=== PATIENT | female | born 1995 | race American Indian/Alaskan Native ===

== ENCOUNTER 2017-09-11 18:56 | Emergency (ER) | payer MEDICAID ==
[2017-09-11 19:26] VITALS: BP 120/73
[2017-09-11 20:06] LABS: Basophils % (Auto) 0.4 % (0.0-1.8); Eosinophils # (Auto) 0.2 K/mm3 (0.0-0.4); Eosinophils % (Auto) 2.7 % (0.0-4.3); Hematocrit 39.2 % (30.3-42.9); Hemoglobin 12.6 gm/dl (10.1-14.3); Lymphocytes # (Auto) 2.1 K/mm3 (1.2-5.4); Lymphocytes % (Auto) 26.8 % (13.4-35.0); Mean Corpuscular HGB Conc 32 % (30-34); Mean Corpuscular Hemoglobin 26 pg (28-32); Mean Corpuscular Volume 81 fl (79-97); Monocytes # (Auto) 0.8 K/mm3 (0.0-0.8); Monocytes % (Auto) 10.6 % (0.0-7.3); Platelet Count 267 K/mm3 (140-440); Red Blood Count 4.83 M/mm3 (3.65-5.03); Red Cell Distribution Width 17.2 % (13.2-15.2)
[2017-09-11 20:17] LABS: BUN/Creatinine Ratio 12; Blood Urea Nitrogen 7 mg/dL (7-17); Calcium 9.3 mg/dL (8.4-10.2); Hemolysis Index 16
[2017-09-11 21:15] LABS: Bacteria,Urine 1+ /HPF (Negative); Bilirubin,Urine NEG (Negative); Blood,Urine NEG (Negative); Color,Urine Yellow (Yellow); Mucus,Urine 1+ /HPF; Protein,Urine <15 mg/dL mg/dL (Negative)
--- NOTE | 2017-09-11 21:54 | Ultrasound Report ---
FINAL REPORT EXAM: US OB TRANSVAGINAL HISTORY: Pelvic cramping COMPARISON: None available. TECHNIQUE: Several real-time grayscale and color Doppler images were obtained. Transabdominal and transvaginal exam. FINDINGS: Uterus measures 9.5 x 7.0 x 8.4 centimeters. Single live IUP. Estimated gestational age 9 weeks 4 days. Estimated delivery date April 12, 2018. heart rate 168 beats per minute. Yolk sac is present. No adnexal masses are demonstrated. Right ovary measures 2.9 x 1.7 x 1.9 centimeters. The left ovary measures 2.4 x 1.8 x 2.3 centimeters. Within the left ovary, there is a cystic structure measuring 1.1 centimeters which may reflect corpus luteum. IMPRESSION: Single live IUP. Estimated gestational age 9 weeks 4 days. Estimated delivery date April 12, 2018. 1.1 centimeter left ovarian cystic structure which may reflect corpus luteum. No adnexal masses.
--- NOTE | 2017-09-11 21:55 | Ultrasound Report ---
FINAL REPORT EXAM: US OB < = 14 WEEKS FETUS HISTORY: Pelvic cramping COMPARISON: None available. TECHNIQUE: Several real-time grayscale and color Doppler images were obtained. Transabdominal and transvaginal exam. FINDINGS: Uterus measures 9.5 x 7.0 x 8.4 centimeters. Single live IUP. Estimated gestational age 9 weeks 4 days. Estimated delivery date April 12, 2018. heart rate 168 beats per minute. Yolk sac is present. No adnexal masses are demonstrated. Right ovary measures 2.9 x 1.7 x 1.9 centimeters. The left ovary measures 2.4 x 1.8 x 2.3 centimeters. Within the left ovary, there is a cystic structure measuring 1.1 centimeters which may reflect corpus luteum. IMPRESSION: Single live IUP. Estimated gestational age 9 weeks 4 days. Estimated delivery date April 12, 2018. 1.1 centimeter left ovarian cystic structure which may reflect corpus luteum. No adnexal masses.
== END 2017-09-11 23:06 | disposition left against medical advice (07) ==
LOC: ED 18:56
DX: O26.891 Other specified pregnancy related conditions, first trimester (principal); R07.89 Other chest pain; R10.2 Pelvic and perineal pain; Z3A.09 9 weeks gestation of pregnancy; Z53.21 Procedure and treatment not carried out due to patient leaving prior to being seen by health care provider
CPT/HCPCS: 36415; 76801; 76817; 80048; 81001; 84484; 84702; 85025; 93005; 93010

== ENCOUNTER 2017-10-11 20:39 | Emergency (ER) | payer MEDICAID ==
[2017-10-11 21:41] LABS: Basophils % (Auto) 0.3 % (0.0-1.8); Eosinophils # (Auto) 0.2 K/mm3 (0.0-0.4); Eosinophils % (Auto) 3.2 % (0.0-4.3); Hematocrit 37.1 % (30.3-42.9); Hemoglobin 12.4 gm/dl (10.1-14.3); Lymphocytes # (Auto) 1.5 K/mm3 (1.2-5.4); Lymphocytes % (Auto) 20.6 % (13.4-35.0); Mean Corpuscular HGB Conc 33 % (30-34); Mean Corpuscular Hemoglobin 27 pg (28-32); Mean Corpuscular Volume 81 fl (79-97); Monocytes # (Auto) 0.5 K/mm3 (0.0-0.8); Monocytes % (Auto) 7.3 % (0.0-7.3); Platelet Count 223 K/mm3 (140-440); Red Blood Count 4.58 M/mm3 (3.65-5.03); Red Cell Distribution Width 16.9 % (13.2-15.2)
[2017-10-11 21:47] LABS: BUN/Creatinine Ratio 10; Blood Urea Nitrogen 5 mg/dL (7-17); Calcium 9.3 mg/dL (8.4-10.2); Hemolysis Index 44
[2017-10-11 22:17] LABS: HCG Qualitative,Urine Positive (Negative)
[2017-10-11 22:25] LABS: Bacteria,Urine 1+ /HPF (Negative); Bilirubin,Urine NEG (Negative); Blood,Urine NEG (Negative); Calcium Oxalate Crystals,Urine 1+; Color,Urine Yellow (Yellow); Mucus,Urine 1+ /HPF
[2017-10-11] MEDS ORDERED: NACL 0.9% 1000 ML 1,000 ML ONE (23:14)
--- NOTE | 2017-10-11 23:17 | Emergency Department Report ---
ED Female HPI - General Chief complaint: Abdominal Pain Stated complaint: ABD PAIN/VAG BLEEDING; 13WKS GEST Time Seen by Provider: 10/11/17 22:02 Source: patient Mode of arrival: Ambulatory Limitations: No Limitations - History of Present Illness Initial comments: Ms. Dunn is pleasant 22 yo female who presents with abdominal pain, pelvic cramping and vomiting. She is 13 weeks 6 days . She has not had vomiting during this . However she has more vomiting today. She has vaginal spotting. Estimated due date 04/09/2018. Pain is 7 out of 10. MD Complaint: vaginal bleeding -: Gradual, days(s) (1) Severity: mild Severity scale (0 -10): 7 Quality: cramping - Related Data Previous Rx's Medication Instructions Recorded Last Taken Type Promethazine [Phenergan TAB] 25 mg PO Q6HR PRN #20 tab 10/12/17 Unknown Rx Allergies Allergy/AdvReac Type Severity Reaction Status Date / Time No Known Allergies Allergy Verified 10/11/17 23:29 ED Review of Systems ROS: Stated complaint: ABD PAIN/VAG BLEEDING; 13WKS GEST Other details as noted in HPI Comment: All other systems reviewed and negative Constitutional: denies: fever, malaise Respiratory: denies: cough Cardiovascular: denies: chest pain ED Past Medical Hx - Social History Smoking Status: Never Smoker Substance Use Type: None - Medications Home Medications: Home Medications Medication Instructions Recorded Confirmed Last Taken Type Promethazine [Phenergan TAB] 25 mg PO Q6HR PRN #20 tab 10/12/17 Unknown Rx ED Physical Exam - General Limitations: No Limitations General appearance: alert, in no apparent distress - Head Head exam: Present: atraumatic, normocephalic - Eye Eye exam: Present: normal appearance - ENT ENT exam: Present: mucous membranes moist - Neck Neck exam: Present: normal inspection. Absent: tenderness, meningismus - Respiratory Respiratory exam: Present: normal lung sounds bilaterally. Absent: respiratory distress, wheezes, rales, rhonchi - Cardiovascular Cardiovascular Exam: Present: regular rate, normal rhythm, normal heart sounds. Absent: bradycardia, tachycardia, systolic murmur, diastolic murmur, rubs, gallop - GI/Abdominal GI/Abdominal exam: Present: soft, normal bowel sounds. Absent: distended, tenderness, guarding, rebound - Extremities Exam Extremities exam: Present: normal inspection - Back Exam Back exam: Present: normal inspection - Neurological Exam Neurological exam: Present: alert, oriented X3 - Psychiatric Psychiatric exam: Present: normal affect, normal mood - Skin Skin exam: Present: warm, dry, intact, normal color. Absent: rash ED Course Vital Signs 10/11/17 10/11/17 10/11/17 21:02 22:00 22:08 Temperature 98.0 F 99.0 F Pulse Rate 82 87 Respiratory 18 16 Rate Blood Pressure 111/61 Blood Pressure 116/73 [Left] O2 Sat by Pulse 100 100 100 Oximetry 10/11/17 10/12/17 10/12/17 23:13 00:19 00:31 Temperature Pulse Rate Respiratory Rate Blood Pressure 105/66 105/66 105/66 Blood Pressure [Left] O2 Sat by Pulse 100 100 100 Oximetry 10/12/17 10/12/17 10/12/17 01:00 01:09 01:30 Temperature Pulse Rate Respiratory Rate Blood Pressure 122/70 122/70 120/67 Blood Pressure [Left] O2 Sat by Pulse 100 100 99 Oximetry 10/12/17 10/12/17 02:00 02:30 Temperature Pulse Rate Respiratory Rate Blood Pressure 120/67 113/64 Blood Pressure [Left] O2 Sat by Pulse 100 99 Oximetry ED Medical Decision Making - Lab Data Result diagrams: 10/11/17 21:14 10/11/17 21:14 Laboratory Results - last 24 hr 10/11/17 10/11/17 10/11/17 21:14 21:14 21:55 WBC 7.4 RBC 4.58 Hgb 12.4 Hct 37.1 MCV 81 MCH 27 L MCHC 33 RDW 16.9 H Plt Count 223 Lymph % (Auto) 20.6 Evangeline % (Auto) 7.3 Eos % (Auto) 3.2 Baso % (Auto) 0.3 Lymph # 1.5 Evangeline # 0.5 Eos # 0.2 Baso # 0.0 Seg Neutrophils % 68.6 Seg Neutrophils # 5.0 Sodium 134 L Potassium 4.2 Chloride 99.8 Carbon Dioxide 20 L Anion Gap 18 BUN 5 L Creatinine 0.5 L Estimated GFR > 60 BUN/Creatinine Ratio 10 Glucose 90 Calcium 9.3 Urine Color Yellow Urine Turbidity Clear Urine pH 5.0 Ur Specific Ramer 1.025 Urine Protein 30 mg/dl Urine Glucose (UA) Neg Urine Ketones Neg Urine Blood Neg Urine Nitrite Neg Ur Reducing Substances Not Reportable Urine Bilirubin Neg Urine Ictotest Not Reportable Urine Urobilinogen 2.0 Ur Leukocyte Esterase Sm Urine WBC (Auto) 3.0 Urine RBC (Auto) 2.0 U Epithel Cells (Auto) 12.0 Urine Bacteria (Auto) 1+ Calcium Oxalate Crystal 1+ Urine Mucus 1+ Urine HCG, Qual Positive A - Medical Decision Making Ms. Dunn presents with threatened miscarriage and hyperemesis gravidarum. IVF provided in ED with IV antiemetic. Viable IUP seen on ultrasound. RX: promethazine. Rh+ Critical care attestation.: If time is entered above; I have spent that time in minutes in the direct care of this critically ill patient, excluding procedure time. ED Disposition Clinical Impression: Threatened miscarriage, Hyperemesis gravidarum Disposition: TO HOME OR SELFCARE Is pt being admited?: No Condition: Stable Instructions: Threatened Miscarriage (ED), Hyperemesis Gravidarum (ED) Prescriptions: Promethazine [Phenergan TAB] 25 mg PO Q6HR PRN #20 tab PRN Reason: Nausea Referrals: PRIMARY CARE, [Primary Care Provider] - 3-5 Days Time of Disposition: 02:49
[2017-10-11] MEDS ORDERED: ZOFRAN IV ONE (23:38)
[2017-10-11] MEDS ORDERED: NACL 0.9% 1000 ML 1,000 ML IV ONE (23:38)
--- NOTE | 2017-10-12 01:12 | Ultrasound Report ---
FINAL REPORT EXAM: US OB < = 14 WEEKS FETUS HISTORY: vaginal spotting 13 weeks COMPARISON: September 11, 2017. TECHNIQUE: Several real-time grayscale and color Doppler images were obtained. Transabdominal and transvaginal exam. FINDINGS: Single live IUP. Estimated gestational age 14 weeks 3 days. Estimated delivery date April 08, 2018. On prior exam, estimated delivery date April 12, 2018. heart rate 161 beats per minute. Uterus measures 12.6 x 8.9 x 10.6 centimeters. Limited evaluation of structures due to early gestational age. No adnexal masses are demonstrated. Right ovary measures 4.3 x 1.5 x 1.5 centimeters. Left ovary measures 3.6 x 2.0 x 2.2 centimeters. 1.6 centimeter hypoechoic left ovarian structure which may reflect corpus luteum. On prior exam there is a 1.1 centimeter left ovarian cystic structure. Placenta location anterior. Placenta slightly low lying. Placenta approximately 5 millimeters from the cervical os. The cervix is closed. Technologist notes slight heterogeneity uterus underlying the placenta. No retroplacental clot demonstrated. There is vascular flow to the placenta. IMPRESSION: Single live IUP. Estimated gestational age 14 weeks 3 days. Estimated delivery date April 08, 2018. On prior exam, estimated delivery date April 12, 2018. No placenta previa. The placenta is low lying approximately 5 millimeters from the cervical os. 1.6 centimeter hypoechoic left ovarian hypoechoic structure which could reflect corpus luteum. No adnexal masses are demonstrated. Technologist notes slight heterogeneity of the uterus underlying the placenta. No placental fluid collection demonstrated. No evidence of abruption. Followup exam suggested to assess stability.
[2017-10-12 02:40] VITALS: BP 113/64
== END 2017-10-12 03:00 | disposition home or self-care (01) ==
LOC: ED 20:39
DX: O03.9 Complete or unspecified spontaneous abortion without complication (principal); O21.0 Mild hyperemesis gravidarum; Z3A.13 13 weeks gestation of pregnancy
CPT/HCPCS: 36415; 76801; 76817; 80048; 81001; 81025; 85025; 86900; 86901; 96361; 96374; 99284; J2405; J7030

== ENCOUNTER 2018-03-30 21:19 | Inpatient (IN) | payer OTHER, MEDICAID ==
[2018-03-31] MEDS ORDERED: BRETHINE IVP PRN ×2 (00:21→09:30)
[2018-03-31] MEDS ORDERED: STADOL IV PRN (00:21)
[2018-03-31] MEDS ORDERED: BRETHINE SUB-Q PRN ×2 (00:21→09:30)
[2018-03-31] MEDS ORDERED: MINERAL OIL PO PRN ×2 (00:21→09:30)
[2018-03-31] MEDS ORDERED: XYLOCAINE 2% INFILTRATI ONE (00:21)
[2018-03-31] MEDS ORDERED: SUBLIMAZE IV PRN (00:21)
[2018-03-31 00:55] LABS: Hematocrit 30.6 % (30.3-42.9); Mean Corpuscular HGB Conc 33 % (30-34); Mean Corpuscular Volume 79 fl (79-97); Platelet Count 233 K/mm3 (140-440)
[2018-03-31] MEDS ORDERED: PITOCin/NS 20 UNIT/1000ML DRIP 20 UNITS/1,000 ML BAG IV SCH (01:00)
[2018-03-31 01:16] LABS: Mean Corpuscular Hemoglobin 26 pg (28-32)
[2018-03-31] MEDS: LACTATED RINGERS 1,000 ML IV SCH ×4 (04:23→17:41)
[2018-03-31] MEDS ORDERED: PITOCin/NS 30 UNIT/500ML 30,000 MILLIUNITS/500 ML BAG IV ONE (08:55)
--- NOTE | 2018-03-31 09:00 | History and Physical Report ---
History of Present Illness Date of examination: 03/31/18 Date of admission: 03/31/18 00:27 Chief complaint: contractions History of present illness: 22y/o @ 38+2 weeks presents with regular uterine contractions and advanced cervical dilation of 5cm. She denies leakage of fluid. The patient initiated her care @ 12 weeks ega with [facility]. Her is complicated by obesity. The patient is GBS negative. Past History Past Medical History: no pertinent history Past Surgical History: no surgical history Social history: single - Obstetrical History Expected Date of Delivery: 04/12/18 Actual Gestation: 38 Week(s) 2 Day(s) : 1 Para: 0 Hx # Term Pregnancies: 0 Spontaneous Abortions: 0 Induced : 0 Number of Living Children: 0 Medications and Allergies Allergies Allergy/AdvReac Type Severity Reaction Status Date / Time No Known Allergies Allergy Verified 10/11/17 23:29 Home Medications Medication Instructions Recorded Confirmed Last Taken Type Vit,Calc76/Iron/Folic 1 each PO DAILY 03/30/18 03/30/18 03/30/18 History [Pnv 29-1 Tablet] Active Meds: Active Medications Butorphanol Tartrate (Stadol) 2 mg IV Q2H PRN PRN Reason: Pain , Severe (7-10) Ephedrine Sulfate (Ephedrine Sulfate) 10 mg IV Q2M PRN PRN Reason: Hypotension Fentanyl (Sublimaze) 100 mcg IV Q2H PRN PRN Reason: Labor Pain Lactated Ringer's (Lactated Ringers) 1,000 mls @ 125 mls/hr IV DIRECT ALIYA Last Admin: 03/31/18 04:23 Dose: 125 mls/hr Documented by: Oxytocin/Sodium Chloride (Pitocin/Ns 20 Unit/1000ml Drip) 20 units in 1,000 mls @ 125 mls/hr IV DIRECT ALIYA Mineral Oil (Mineral Oil) 30 ml PO QHS PRN PRN Reason: Constipation Terbutaline Sulfate (Brethine) 0.25 mg SUB-Q ONCE PRN PRN Reason: Hyperstimulation/Hypertonicity Terbutaline Sulfate (Brethine) 0.25 mg IVP ONCE PRN PRN Reason: Hyperstimulation/Hypertonicity Review of Systems All systems: negative Genitourinary: contractions, no leakage of fluid - Vital Signs Vital signs: Vital Signs Pulse BP 86 133/76 03/30/18 21:51 03/30/18 21:51 Temp Pulse Resp BP Pulse Ox 98.3 F 86 16 130/74 98 03/31/18 07:58 03/31/18 08:09 03/31/18 07:58 03/31/18 08:09 03/31/18 04:52 - Physical Exam Breasts: Positive: deferred Cardiovascular: Regular rate Lungs: Positive: Clear to auscultation Results Result Diagrams: 03/31/18 00:39 Abnormal lab results 03/31/18 Range/Units 00:39 Hgb 10.0 L (10.1-14.3) gm/dl MCH 26 L (28-32) pg RDW 17.0 H (13.2-15.2) % All other labs normal. Assessment and Plan - Patient Problems (1) Active labor at term Current Visit: Yes Status: Acute Plan to address problem: admit to L&D (2) Active labor at term Current Visit: Yes Status: Acute
[2018-03-31] MEDS ORDERED: XYLOCAINE 2% INFILTRATI NR (09:30)
[2018-03-31] MEDS ORDERED: PITOCin/NS 30 UNIT/500ML 30 UNITS/500 ML BAG IV SCH (10:00)
[2018-03-31] MEDS ORDERED: LACTATED RINGERS 1,000 ML IV SCH (10:00)
--- NOTE | 2018-03-31 15:46 | Event Note ---
Date: 03/31/18 Patient lying in bed reports feeling contractions sve /-2 AROM clear will continue pit augmentation will offer epidural expect vaginal delivery
--- NOTE | 2018-03-31 17:37 | Anesthesia Consultation ---
Anesthesia Consult and Med Hx Date of service: 03/31/18 - Airway Anesthetic Teeth Evaluation: Good ROM Head & Neck: Adequate Mental/Hyoid Distance: Adequate Mallampati Class: Class III Intubation Access Assessment: Possibly Difficult - Pre-Operative Health Status ASA Pre-Surgery Classification: ASA3 Proposed Anesthetic Plan: Epidural, Spinal - Pulmonary Hx Asthma: No COPD: No Hx Pneumonia: No - Cardiovascular System Hx Hypertension: No - Central Nervous System Hx Seizures: No Hx Psychiatric Problems: No - Endocrine Hx Renal Disease: No Hx End Stage Renal Disease: No Hx Hypothyroidism: No Hx Hyperthyroidism: No - Hematic Hx Anemia: No Hx Sickle Cell Disease: No - Other Systems Hx Alcohol Use: No Hx Obesity: Yes
[2018-03-31] MEDS ORDERED: NARCAN 2 MG/2 ML IV PRN (17:38)
[2018-03-31] MEDS ORDERED: fentaNYL-BUPIV 2 MCG/ML-0.125% 200 MCG/100 ML BAG EPIDURAL SCH (18:00)
[2018-03-31] MEDS: PITOCin/NS 20 UNIT/1000ML DRIP 20 UNITS/1,000 ML BAG IV SCH ×2 (19:00→21:43)
[2018-03-31] MEDS ORDERED: BENADRYL PO PRN (20:06)
[2018-03-31] MEDS ORDERED: TYLENOL PO PRN (20:06)
[2018-03-31] MEDS ORDERED: TUCKS PAD TP PRN (20:06)
[2018-03-31] MEDS ORDERED: PHENERGAN PR PRN (20:06)
[2018-03-31] MEDS ORDERED: NORCO 5/325 PO PRN (20:06)
[2018-03-31] MEDS ORDERED: ZOFRAN IV PRN (20:06)
[2018-03-31] MEDS ORDERED: LANSINOH TP PRN (20:06)
[2018-03-31] MEDS ORDERED: MILK OF MAGNESIA PO PRN (20:06)
[2018-03-31] MEDS ORDERED: PHENERGAN PO PRN (20:06)
[2018-03-31] MEDS ORDERED: DULCOLAX PR PRN (20:06)
--- NOTE | 2018-03-31 20:06 | Procedure Note ---
OB Delivery Note - Delivery Date of Delivery: 03/31/18 Surgeon: ALEXI COLON Estimated blood loss: 300cc - Vaginal Delivery presentation: vertex Delivery position: OA Intrapartum events: none Delivery augmentation: pitocin Delivery monitor: external FHT Route of delivery: Delivery placenta: spontaneous Delivery cord: 3 umbilical vessels Episiotomy: none Delivery laceration: 2nd degree Delivery repair: vicryl Anesthesia: epidural Delivery comments: Patient progressed to C/C/+2 and pushed to deliver a liveborn male with apgars of 8/9. After delivery of the head, the anterior shoulder was delivered with assistance of Lorna and strong maternal effort. The infant was then bulb suctioned. The cord was clamped and cut and infant placed on the patient's abdomen. The placenta delivered spontaneously intact with a 3VC. The patient sustained a midline 2nd degree laceration repaired in normal fashion with 2-0 vicryl. EBL 300ml. weight of 8lbs 13oz. - Infant A at 1 minute: 8 at 5 minutes: 9 Infant Gender: Male (weight 8lbs 13oz)
--- NOTE | 2018-03-31 20:38 | Anesthesia Day of Surgery ---
Anesthesia Day of Surgery - Day of Surgery Patient Examined: Yes Patient H&P Reviewed: Yes Patient is NPO: Yes Beta Blockers: No Cardiac Clearance: No Pulmonary Clearance: No
[2018-03-31] MEDS ORDERED: SODIUM CHLORIDE FLUSH SYRINGE 10 ML IV NR (21:00)
[2018-04-01] MEDS: MOTRIN PO SCH ×2 (08:25→18:38)
[2018-04-01 09:12] LABS: Hematocrit 25.8 % (30.3-42.9); Hemoglobin 8.3 gm/dl (10.1-14.3)
--- NOTE | 2018-04-01 13:30 | Progress Note ---
Assessment and Plan - Patient Problems (1) Active labor at term Current Visit: Yes Status: Acute Plan to address problem: patient doing well discharge home tomorrow (2) Active labor at term Current Visit: Yes Status: Acute Subjective - Subjective Date of service: 04/01/18 Interval history: Patient reports doing well. Attempting to breast feed. Tolerating regular diet Patient reports: appetite normal, voiding normally, pain well controlled : doing well Objective - Vital Signs Latest vital signs: Vital Signs Temp Pulse Resp BP BP Pulse Ox 04/01/18 12:13 98.5 F 107 H 18 119/81 04/01/18 07:57 98.5 F 106 H 18 127/74 04/01/18 04:30 98.7 F 72 18 114/64 04/01/18 00:15 98.6 F 74 18 107/75 03/31/18 22:00 98.6 F 84 18 136/78 03/31/18 21:10 88 107/59 03/31/18 21:07 93 H 79 L 03/31/18 21:05 97 H 100 03/31/18 21:00 95 H 98 03/31/18 20:55 94 H 112/60 98 03/31/18 20:50 92 H 99 03/31/18 20:45 97 H 99 03/31/18 20:40 97 H 113/59 100 03/31/18 20:35 92 H 100 03/31/18 20:30 100 H 99 03/31/18 20:25 100 H 111/58 99 03/31/18 20:23 97.9 F 93 H 18 107/53 98 03/31/18 20:20 98 H 99 03/31/18 20:15 99 H 99 03/31/18 20:11 99 H 107/53 03/31/18 20:10 96 H 99 03/31/18 20:03 96 H 95 03/31/18 19:58 91 H 100 03/31/18 19:57 69 L 03/31/18 19:53 100 H 100 03/31/18 19:48 86 75 L 03/31/18 19:43 110 H 83 L 03/31/18 19:38 100 H 99 03/31/18 19:36 100 H 92/49 03/31/18 19:33 112 H 100 03/31/18 19:28 103 H 100 03/31/18 19:23 96 H 100 18 19:18 90 100 18 19:13 90 99 18 19:08 93 H 99 03/31/18 19:05 104 H 104/67 18 19:03 86 105/62 99 18 19:01 90 102/54 18 18:59 83 102/51 03/31/18 18:58 90 99 03/31/18 18:57 88 109/65 03/31/18 18:55 96 H 104/56 03/31/18 18:53 93 H 100/56 03/31/18 18:51 88 98/53 03/31/18 18:49 91 H 98/54 03/31/18 18:47 97 H 105/58 03/31/18 18:45 91 H 103/58 03/31/18 18:42 111 H 119/59 03/31/18 18:39 101 H 105/65 18 18:37 89 106/57 03/31/18 18:36 92 H 109/65 03/31/18 18:33 96 H 104/52 18 18:31 87 103/53 03/31/18 18:29 93 H 105/54 03/31/18 18:27 91 H 96/51 03/31/18 18:25 99 H 98/54 03/31/18 18:23 94 H 98/54 18 18:20 79 92/53 18 18:19 90 88/53 03/31/18 18:17 86 85/47 03/31/18 18:15 93 H 85/47 18 18:13 92 H 93/46 18 18:11 77 99/53 99 18 18:09 93 H 122/58 18 18:07 91 H 117/59 03/31/18 18:06 88 100 18 18:05 98 H 115/56 18 18:03 88 126/60 18 18:01 91 H 131/64 100 18 17:58 97 H 118/66 18 17:56 90 100 18 17:55 88 130/66 03/31/18 17:53 91 H 132/67 03/31/18 17:51 92 H 133/66 03/31/18 17:49 90 132/62 03/31/18 17:48 95 H 145/86 100 03/31/18 17:45 101 H 144/67 03/31/18 17:43 93 H 136/67 100 03/31/18 17:41 101 H 131/67 03/31/18 17:39 100 H 127/85 03/31/18 17:38 102 H 99 03/31/18 16:15 98.6 F 18 03/31/18 14:43 90 135/82 03/31/18 13:46 98.3 F 18 03/31/18 13:44 93 H 122/86 Intake and Output 03/31/18 04/01/18 04/01/18 22:59 06:59 14:59 Intake Total 1277.083 300 960 Output Total 2100 Balance 1277.083 -1800 960 Intake: IV 977.083 Lactated Ringers 1,000 ml 637.5 @ 125 mls/hr IV DIRECT ALIYA Rx#:[id number] PITOCin/NS 20 UNIT/1000ML 339.583 DRIP 20 units In 1,000 ml @ 125 mls/hr IV DIRECT ALIYA Rx#:[id number] Oral 960 Intake, Free Water 300 300 Output: Urine 2100 Void 2100 Other: Total, Intake Amount 480 Total, Output Amount 800 # Voids Void 1 Estimated Blood Loss 300 - Exam Abdomen: Present: normal appearance, soft - Labs Labs: Abnormal lab results 04/01/18 Range/Units 09:00 Hgb 8.3 L (10.1-14.3) gm/dl Hct 25.8 L (30.3-42.9) %
--- NOTE | 2018-04-01 13:32 | Discharge Summary ---
Providers - Providers Date of Admission: 03/31/18 00:27 Date of discharge: 04/02/18 Attending physician: ALEXI COLON Primary care physician: ALEXI COLON Hospitalization Reason for admission: active labor Delivery: complications: none Discharge diagnosis: IUP at term delivered Hospital course: Patient admitted in active labor. Had a . uncomplicated Condition at discharge: Good Disposition: DC-01 TO HOME OR SELFCARE - Discharge Diagnoses (1) Active labor at term Status: Acute (2) Active labor at term Status: Acute Plan - Discharge Medications Prescriptions: HYDROcodone/APAP 5-325 [[place] 5/325] 1 each PO Q6HR PRN #20 tablet PRN Reason: Pain Ibuprofen [Motrin] 800 mg PO Q8HR PRN #60 tablet PRN Reason: Pain, Mild (1-3) - Provider Discharge Summary Activity: no sex for 6 weeks, no heavy lifting 4 weeks, no strenuous exercise Diet: routine Instructions: routine Additional instructions: [] Smoking cessation referral if applicable(refer to patient education folder for contact #) [] Refer to [facility] Booklet Call your doctor immediately for: * Fever > 100.5 * Heavy vaginal bleeding ( >1 pad per hour) * Severe persistent headache * Shortness of breath * Reddened, hot, painful area to leg or breast * schedule followup in 4 weeks - Follow up plan
[2018-04-02] MEDS: MOTRIN PO SCH (12:25)
[2018-04-02 20:12] VITALS: BP 131/87
== END 2018-04-02 14:30 | disposition home or self-care (01) | DRG 807 ==
LOC: TRG 21:19 → LD 03-31 00:27 → OB 03-31 22:10
PROVIDERS: ADMIT Obstetrics & Gynecology; ATTEND Obstetrics & Gynecology
PROC: 10E0XZZ Delivery of Products of Conception, External Approach (ICD-10-PCS; principal; 2018-03-31)
PROC: 0KQM0ZZ Repair Perineum Muscle, Open Approach (ICD-10-PCS; 2018-03-31)
PROC: 10907ZC Drainage of Amniotic Fluid, Therapeutic from Products of Conception, Via Natural or Artificial Opening (ICD-10-PCS; 2018-03-31)
PROC: 3E0R3BZ Introduction of Anesthetic Agent into Spinal Canal, Percutaneous Approach (ICD-10-PCS; 2018-03-31)
PROC: 00HU33Z Insertion of Infusion Device into Spinal Canal, Percutaneous Approach (ICD-10-PCS; 2018-03-31)
DX: O99.214 Obesity complicating childbirth (principal); Z37.0 Single live birth; E66.9 Obesity, unspecified; Z3A.38 38 weeks gestation of pregnancy; O70.1 Second degree perineal laceration during delivery
CPT/HCPCS: 36415; 85014; 85018; 85027; 86592; 86850; 86900; 86901; G0378; J0595; J2590; J7120

== ENCOUNTER 2019-03-07 12:51 | Emergency (ER) | payer MEDICAID, OTHER ==
[2019-03-07 13:20] VITALS: BP 107/65
--- NOTE | 2019-03-07 13:21 | Emergency Department Report ---
Blank Doc - Documentation Documentation: 23-year-old female that presents with chest pain and headaches. Stated is not sure if . Denies any SOB. Denies any radiation of pain. This initial assessment/diagnostic orders/clinical plan/treatment(s) is/are subject to change based on patient's health status, clinical progression and re- assessment by fellow clinical providers in the ED. Further treatment and workup at subsequent clinical providers discretion. Patient/guardians urged not to elope from the ED as their condition may be serious if not clinically assessed and managed. Initial orders include: 1- Patient sent to [facility] for further evaluation and treatment 2- EKG
--- NOTE | 2019-03-07 14:10 | Emergency Department Report ---
ED General Adult HPI - General Chief complaint: Chest Pain Stated complaint: CHEST PAIN/HEADACHE/PREG Time Seen by Provider: 03/07/19 13:19 Source: patient Mode of arrival: Ambulatory Limitations: No Limitations - Related Data Home Medications Medication Instructions Recorded Confirmed Last Taken Vit,Calc76/Iron/Folic 1 each PO DAILY 03/30/18 03/30/18 03/30/18 [Pnv 29-1 Tablet] Previous Rx's Medication Instructions Recorded Last Taken Type HYDROcodone/APAP 5-325 [Fraser 1 each PO Q6HR PRN #20 tablet 04/01/18 Unknown Rx 5/325] Ibuprofen [Motrin] 800 mg PO Q8HR PRN #60 tablet 04/01/18 Unknown Rx Acetaminophen [Acetaminophen TAB] 500 mg PO Q8H PRN #12 tablet 03/07/19 Unknown Rx Nitrofurantoin Ford/M-Cryst 100 mg PO Q12HR 7 Days #14 capsule 03/07/19 Unknown Rx [Macrobid CAP] Allergies Allergy/AdvReac Type Severity Reaction Status Date / Time No Known Allergies Allergy Verified 10/11/17 23:29 ED Review of Systems ROS: Stated complaint: CHEST PAIN/HEADACHE/PREG Other details as noted in HPI ED Past Medical Hx - Past Medical History Previous Medical History?: No Hx Hypertension: No Hx Congestive Heart Failure: No Hx Diabetes: No Hx Deep Vein Thrombosis: No Hx Renal Disease: No Hx Sickle Cell Disease: No Hx Seizures: No Hx Asthma: No Hx COPD: No Hx HIV: No - Surgical History Past Surgical History?: No - Social History Smoking Status: Never Smoker Substance Use Type: None - Medications Home Medications: Home Medications Medication Instructions Recorded Confirmed Last Taken Type Vit,Calc76/Iron/Folic 1 each PO DAILY 03/30/18 03/30/18 03/30/18 History [Pnv 29-1 Tablet] HYDROcodone/APAP 5-325 [Fraser 1 each PO Q6HR PRN #20 tablet 04/01/18 Unknown Rx 5/325] Ibuprofen [Motrin] 800 mg PO Q8HR PRN #60 tablet 04/01/18 Unknown Rx Acetaminophen [Acetaminophen TAB] 500 mg PO Q8H PRN #12 tablet 03/07/19 Unknown Rx Nitrofurantoin Ford/M-Cryst 100 mg PO Q12HR 7 Days #14 capsule 03/07/19 Unknown Rx [Macrobid CAP] ED Physical Exam - General Limitations: No Limitations ED Course Vital Signs 03/07/19 13:18 Temperature 98.4 F Pulse Rate 93 H Respiratory 18 Rate Blood Pressure 107/65 O2 Sat by Pulse 99 Oximetry ED Medical Decision Making - Lab Data Result diagrams: 03/07/19 14:26 Lab Results 03/07/19 03/07/19 03/07/19 Range/Units 14:00 14:26 14:26 D-Dimer 320.17 H (0-234) ng/mlDDU Sodium 135 L (137-145) mmol/L Potassium 4.2 (3.6-5.0) mmol/L Chloride 101.9 (98-107) mmol/L Carbon Dioxide 18 L (22-30) mmol/L Anion Gap 19 mmol/L BUN 5 L (7-17) mg/dL Creatinine 0.4 L (0.7-1.2) mg/dL Estimated GFR > 60 ml/min BUN/Creatinine Ratio 13 % Glucose 88 (65-100) mg/dL Calcium 8.8 (8.4-10.2) mg/dL Urine Color Yellow (Yellow) Urine Turbidity Cloudy (Clear) Urine pH 7.0 (5.0-7.0) Ur Specific [place] 1.018 (1.003-1.030) Urine Protein <15 mg/dl (Negative) mg/dL Urine Glucose (UA) Neg (Negative) mg/dL Urine Ketones Neg (Negative) mg/dL Urine Blood Neg (Negative) Urine Nitrite Neg (Negative) Urine Bilirubin Neg (Negative) Urine Urobilinogen < 2.0 (<2.0) mg/dL Ur Leukocyte Esterase Lg (Negative) Urine WBC (Auto) 3.0 (0.0-6.0) /HPF Urine RBC (Auto) 2.0 (0.0-6.0) /HPF U Epithel Cells (Auto) 4.0 (0-13.0) /HPF Urine Bacteria (Auto) 1+ (Negative) /HPF Urine Mucus 1+ /HPF Urine HCG, Qual Positive A (Negative) urine culture pending - EKG Data -: EKG Interpreted by Me (attending physician) EKG shows normal: sinus rhythm (99 bpm) Rate: normal - EKG Data Interpretation: no acute changes, normal EKG - Radiology Data Radiology results: report reviewed Patient had CTA chest and two-view chest x-ray dictated by radiologist report reviewed by myself. Please see details below. Findings [facility] [address] [place] [address] Cat Scan Report Signed Patient: KARLA LOCKWOOD MR #: [id number] : 1995 Acct:[id number] Age/Sex: 23 / F ADM Date: 03/07/19 Loc: ED Attending Dr: Ordering Physician: ORI EARLY Date of Service: 03/07/19 Procedure(s): CT angio chest Accession Number(s): [id number] cc: ORI EARLY CTA of the chest with 3D Reconstruction Indication: , WITH ELEVATED D DIMER Technique: TECHNIQUE: Axial CT images were obtained through the chest after injection of 100 cc of Omnipaque 350 IV contrast. 3 plane MIP reconstructions were produced. All CT scans at this location are performed using CT dose reduction for ALARA by means of automated exposure control. COMPARISON: None available Automatic exposure control was utilized in an attempt to reduce radiation dose. Findings: Pulmonary arteries: The main pulmonary artery and right and left pulmonary artery branches fill satisfactorily with contrast. No pulmonary embolus is seen. Lungs: The lungs are clear. Mediastinum: Heart size is normal. No adenopathy is seen. Aorta: Normal in diameter. No dissection seen within limits of this exam. Impression: No pulmonary embolus is seen Signer Name: Arash Ocampo MD Signed: 03/07/2019 6:26 PM Workstation Name: [id number] Transcribed By: SS Dictated By: Arash Ocampo MD Electronically Authenticated By: Arash Ocampo MD Signed Date/Time: 03/07/191825 DD/ 20 TD/TT: Findings [facility] [address] [place] [address] XRay Report Signed Patient: KARLA LOCKWOOD MR #: [id number] : 1995 Acct:[id number] Age/Sex: 23 / F ADM Date: 03/07/19 Loc: ED Attending Dr: Ordering Physician: VANESA LANDA NP Date of Service: 03/07/19 Procedure(s): XR chest routine 2V Accession Number(s): [id number] cc: VANESA LANDA NP Fluoro Time In Minutes: CHEST 2 VIEWS INDICATION: Chest pain. COMPARISON: None FINDINGS: Support devices: None. Heart: Within normal limits. Lungs/pleura: No acute air space or interstitial disease. No pneumothorax. Additional findings: None. IMPRESSION: Normal chest x-ray Signer Name: Amol Bone Jr, MD Signed: 03/07/2019 3:35 PM Workstation Name: [id number] Transcribed By: TTR Dictated By: AMOL BONE JR, MD Electronically Authenticated By: AMOL BONE JR, MD Signed Date/Time: 03/07/191534 DD/ 34 TD/TT: - Medical Decision Making Laboratory data with Dr. Olivo regarding patient's presentation, treatment plan, labs and need for CT and she will for chest pain and . This is a 23-year-old female here report that she is having chest pain and headache. She denies any cough. Per report pain with inspiration. She denies any chest wall trauma. Denies any shortness of breath. 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 This was dictated by radiologist and report reviewed by myself. Patient has no leg swelling bilaterally, she is stable at present. She goes to [facility] [employer] INSURANCE DIRECT[employer] and I instructed her to call tomorrow to schedule appointment follow-up visit . Patient with atypical chest pain, EKG sinus rhythm with no acute findings. BMP is stable and patient with urinary tract infection. I discussed radiology and lab results the patient and instructed her diagnosis and treatment plan and she voiced understanding. Patient and discharged home in sta ble condition with prescription for Tylenol and Macrobid. She has no pain at present and her vital signs stable, she is afebrile. - Differential Diagnosis pulmonary embolism, PNA, ACS, pleurisy, URI, costochondritis Critical care attestation.: If time is entered above; I have spent that time in minutes in the direct care of this critically ill patient, excluding procedure time. ED Disposition Clinical Impression: Atypical chest pain, Acute cystitis without hematuria Disposition: DC- TO HOME OR SELFCARE Is pt being admited?: No Does the pt Need Aspirin: No Condition: Stable Instructions: Chest Pain (ED), Urinary Tract Infection in Women (ED) Additional Instructions: She is follow-up with the [employer]EMPLOYMENT INSURANCE DIRECTOR in 2 days and if you are symptoms return and worsens please return to the ER [facility] Take Antibiotic as prescribed Take Tylenol for headache. Increase your fluid intake at least 2-3 L of water daily. Please read discharge instructions thus given TPA. Referrals: [facility] [employer] [Provider Group] - 03/09/19 PRIMARY CARE, [Primary Care Provider] - 03/09/19 Forms: Work/School Release Form(ED)
[2019-03-07 14:51] LABS: Bacteria,Urine 1+ /HPF (Negative); Bilirubin,Urine NEG (Negative); Blood,Urine NEG (Negative); Color,Urine Yellow (Yellow); Mucus,Urine 1+ /HPF; Protein,Urine <15 mg/dL mg/dL (Negative); Urobilinogen,Urine < 2.0 mg/dL (<2.0)
[2019-03-07 15:02] LABS: HCG Qualitative,Urine Positive (Negative)
[2019-03-07 15:34] LABS: BUN/Creatinine Ratio 13; Blood Urea Nitrogen 5 mg/dL (7-17); Calcium 8.8 mg/dL (8.4-10.2); Hemolysis Index 33
--- NOTE | 2019-03-07 15:39 | XRay Report ---
CHEST 2 VIEWS INDICATION: Chest pain. COMPARISON: None FINDINGS: Support devices: None. Heart: Within normal limits. Lungs/pleura: No acute air space or interstitial disease. No pneumothorax. Additional findings: None. IMPRESSION: Normal chest x-ray Signer Name: Amol Bone Jr, MD Signed: 03/07/2019 3:35 PM Workstation Name: [id number]
[2019-03-07] MEDS ORDERED: ONDANSETRON 4 MG/2 ML INJ ONE (17:50)
--- NOTE | 2019-03-07 18:30 | Cat Scan Report ---
CTA of the chest with 3D Reconstruction Indication: , WITH ELEVATED D DIMER Technique: TECHNIQUE: Axial CT images were obtained through the chest after injection of 100 cc of Omnipaque 350 IV contrast. 3 plane MIP reconstructions were produced. All CT scans at this location are performed using CT dose reduction for ALARA by means of automated exposure control. COMPARISON: None available Automatic exposure control was utilized in an attempt to reduce radiation dose. Findings: Pulmonary arteries: The main pulmonary artery and right and left pulmonary artery branches fill satis factorily with contrast. No pulmonary embolus is seen. Lungs: The lungs are clear. Mediastinum: Heart size is normal. No adenopathy is seen. Aorta: Normal in diameter. No dissection seen within limits of this exam. Impression: No pulmonary embolus is seen Signer Name: Arash Oacmpo MD Signed: 03/07/2019 6:26 PM Workstation Name: [id number]
== END 2019-03-07 19:48 | disposition home or self-care (01) ==
LOC: ED 12:51
DX: N30.00 Acute cystitis without hematuria (principal); R07.89 Other chest pain
CPT/HCPCS: 36415; 71046; 71275; 80048; 81001; 81025; 85379; 93005; 93010; 99284; J2405; Q9967

== ENCOUNTER 2019-03-19 19:04 | Outpatient (CLI) | payer SELFPAY ==
[2019-03-19 21:43] VITALS: BP 117/74
[2019-03-19 22:51] LABS: Bacteria,Urine 1+ /HPF (Negative); Bilirubin,Urine NEG (Negative); Blood,Urine NEG (Negative); Color,Urine Yellow (Yellow); Mucus,Urine FEW /HPF; Protein,Urine <15 mg/dL mg/dL (Negative); Urobilinogen,Urine < 2.0 mg/dL (<2.0)
== END 2019-03-19 23:17 | disposition home or self-care (01) ==
LOC: TRG 19:04
PROVIDERS: ATTEND Obstetrics & Gynecology
DX: O46.92 Antepartum hemorrhage, unspecified, second trimester (principal); O26.892 Other specified pregnancy related conditions, second trimester; Z3A.20 20 weeks gestation of pregnancy
CPT/HCPCS: 81001

== ENCOUNTER 2019-05-10 19:52 | Outpatient (CLI) | payer MEDICAID ==
[2019-05-10 22:26] VITALS: BP 104/58
--- NOTE | 2019-05-10 22:30 | Ultrasound Report ---
Examination: Ultrasound Obstetrical Limited, 05/10/2019 INDICATION: Evaluate well being. Possible ruptured membranes. Assess CHAZ. COMPARISON: None FINDINGS: There is a single living intrauterine with the head in the cephalic position. Amniotic flui d index measures 8.6 cm, which is within normal limits. The heart rate is 141 beats per minute. The placenta is anterior and grade 2. IMPRESSION: 1. Limited obstetrical ultrasound with details as above. Signer Name: Nicole Michael MD Signed: 05/10/2019 10:25 PM Workstation Name: [id number]
== END 2019-05-10 22:40 | disposition home or self-care (01) ==
LOC: TRG 19:52
PROVIDERS: ATTEND Obstetrics & Gynecology
DX: O42.92 Full-term premature rupture of membranes, unspecified as to length of time between rupture and onset of labor (principal); Z3A.37 37 weeks gestation of pregnancy
CPT/HCPCS: 59025; 76815

== ENCOUNTER 2019-05-20 20:54 | Outpatient (CLI) | payer MEDICAID ==
[2019-05-20] MEDS ORDERED: LACTATED RINGERS 1,000 ML IV SCH (22:00)
== END 2019-05-20 23:24 | disposition home or self-care (01) ==
LOC: TRG 20:54
PROVIDERS: ATTEND Obstetrics & Gynecology
DX: O62.9 Abnormality of forces of labor, unspecified (principal); Z3A.38 38 weeks gestation of pregnancy
CPT/HCPCS: 59025; 96360; J7120

== ENCOUNTER 2021-02-01 09:11 | Emergency (ER) | payer OTHER, MEDICAID ==
[2021-02-01 09:18] VITALS: BP 115/74
[2021-02-01] MEDS ORDERED: IBUPROFEN 800 MG TAB PO ONE (09:26)
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
== END 2021-02-01 11:57 | disposition home or self-care (01) ==
LOC: ED 09:11
DX: S20.212A Contusion of left front wall of thorax, initial encounter (principal); S39.92XA Unspecified injury of lower back, initial encounter; S19.9XXA Unspecified injury of neck, initial encounter; Z79.899 Other long term (current) drug therapy; V89.2XXA Person injured in unspecified motor-vehicle accident, traffic, initial encounter; Y93.89 Activity, other specified; Y92.488 Other paved roadways as the place of occurrence of the external cause; Y99.8 Other external cause status
CPT/HCPCS: 70450; 72100; 72125; 99284